=== PATIENT | male | born 1945 | race Caucasian/White ===

== ENCOUNTER 2023-11-04 06:57 | Day surgery (SDC) | payer MEDICARE ==
[~2023-11-04] VITALS: Ht 188 cm; Wt 114.5 kg
[2023-11-04] VITALS (13 sets, daily range): BP systolic 105–128; BP diastolic 57–76; PULSE 69–78
[~2023-11-04 06:57] MED LIST: AMIO200T68 PO; APIX5TAB PO; ASPI81TA47 PO; ASPIRIN 81 MG CHEWABLE TABLET PO ONE; ATOR40TA28 PO; BUDE10.7 IH; CARV25 PO; DIAZEPAM 5 MG TABLET PO ONE; DiphenhydrAMINE HCL 50 MG CAPSULE PO ONE; EMPA25TA3 PO; ERGO500054 PO; FURO40 PO; LEVO125 PO; METF-1211 PO; PANT-31 PO; POTA10CA85 PO; SACU1TAB PO; SEMA0.258 SQ; SODIUM CHLORIDE 0.9% 1,000 ML IV ONE
[2023-11-04] MEDS ORDERED: SODIUM CHLORIDE 0.9% 1,000 ML ONE (07:43)
[2023-11-04] MEDS ORDERED: DIAZEPAM 5 MG TABLET ONE (07:44)
[2023-11-04] MEDS ORDERED: DiphenhydrAMINE HCL 50 MG CAPSULE ONE (07:44)
[2023-11-04 08:31] LABS: GLUCOMETER DEV NAME(LOC) SDS.; GLUCOSE,POINT OF CARE 157 MG/DL (70-110)
[2023-11-04] MEDS ORDERED: HEPARIN SODIUM 1000 UNITS/NS 1,000 ML ONE (09:02)
[2023-11-04] MEDS ORDERED: SODIUM BICARBONATE 50 MEQ/50 ML VIAL ONE (09:02)
[2023-11-04] MEDS ORDERED: IOHEXOL 300 MG/ML 100 ML VIAL ONE (09:02)
[2023-11-04] MEDS ORDERED: LIDOCAINE/PF 1% 30 ML VIAL ONE (09:02)
[2023-11-04] MEDS ORDERED: HEPARIN SODIUM 2,000 UNITS in HEPARIN SODIUM 1000 UNITS/NS 1,000 ML IARTER ONE (09:30)
[2023-11-04] MEDS ORDERED: FentaNYL CITRATE PF 100 MCG/2 ML VIAL IVP ONE ×2 (09:30→10:15)
[2023-11-04] MEDS ORDERED: IOHEXOL 300 MG/ML 100 ML VIAL ICOR ONE (09:30)
[2023-11-04] MEDS ORDERED: LIDOCAINE 1% 30 ML/SOD BICARB 8.4% 4 ML SQ ONE (09:30)
[2023-11-04] MEDS ORDERED: MIDAZOLAM HCL 2 MG/2 ML VIAL IVP ONE ×2 (09:30→10:15)
[2023-11-04] MEDS ORDERED: FentaNYL CITRATE PF 100 MCG/2 ML VIAL ONE (09:41)
[2023-11-04] MEDS ORDERED: MIDAZOLAM HCL 2 MG/2 ML VIAL ONE (09:41)
== END 2023-11-04 15:20 | disposition home or self-care (01) ==
LOC: CATHLAB 06:57
PROVIDERS: ATTEND Internal Medicine Interventional Cardiology
DX: R94.39 Abnormal result of other cardiovascular function study (principal); I25.10 Atherosclerotic heart disease of native coronary artery without angina pectoris; I42.9 Cardiomyopathy, unspecified; I10 Essential (primary) hypertension; I48.20 Chronic atrial fibrillation, unspecified; E78.5 Hyperlipidemia, unspecified; I48.91 Unspecified atrial fibrillation; E03.9 Hypothyroidism, unspecified; K21.9 Gastro-esophageal reflux disease without esophagitis; Z79.899 Other long term (current) drug therapy; Z79.82 Long term (current) use of aspirin
CPT/HCPCS: 93458; 93005; 82962; 99152; C1760; J3010; J1644; J3490 ×2; J2250; J7030; Q9967